=== PATIENT | female | born 1935 | race Native Hawaiian/Other Pacific Islander ===

== ENCOUNTER 2018-01-18 06:13 | Day surgery (SDC) | payer MEDICARE, MEDICAID ==
[2018-01-18] MEDS ORDERED: ONDANSETRON 4 MG/2 ML VIAL IV ONE (06:14)
[2018-01-18] MEDS ORDERED: IV LACTATED RINGERS SOLUTION 1,000 ML BAG IV ONE (06:14)
[2018-01-18] MEDS ORDERED: CIPROFLOXACIN 0.3% OPHT DROP 2.5 ML BOTTLE ONE (06:41)
[2018-01-18] MEDS ORDERED: CYCLOPENTOLATE 1% OPHT DROP 2 ML BOTTLE ONE (06:41)
[2018-01-18] MEDS ORDERED: FLURBIPROFEN 0.03% OPHT DROP 2.5 ML BOTTLE ONE (06:41)
[2018-01-18] MEDS ORDERED: PHENYLEPHRINE 2.5% OPHT DROP 2 ML BOTTLE ONE (06:42)
[2018-01-18] MEDS ORDERED: TROPICAMIDE 1% OPHT DROP 3 ML BOTTLE ONE (06:42)
[2018-01-18] MEDS ORDERED: MOXIFLOXACIN HCL 3 ML OPHT DROPS ONE (06:53)
[2018-01-18] MEDS ORDERED: LIDOCAINE-MPF 2% 5 ML VIAL ONE (06:54)
[2018-01-18] MEDS ORDERED: TETRACAINE HCL 0.5% OPHT DROP 2 ML BOTTLE ONE (06:54)
[2018-01-18] MEDS ORDERED: TIMOLOL MALEATE 0.5% OPHT DROP 5 ML BOTTLE ONE (06:54)
[2018-01-18] MEDS ORDERED: BALANCED SALT IRRIG SOLN COMB2 15 ML IRRIG.SOLN ONE (06:54)
[2018-01-18] MEDS ORDERED: NEO/POLYMYX B/DEXAME OPHT OINT 3.5 GM TUBE ONE (06:54)
[2018-01-18] MEDS ORDERED: ACETYLCHOLINE CHLORIDE 1% OPHT 1 EA KIT ONE (06:55)
[2018-01-18] MEDS ORDERED: HYALURONIDASE,OVINE 200 UNITS/ML VIAL ONE (06:55)
[2018-01-18] MEDS ORDERED: BUPIVACAINE PF 0.5% 30 ML VIAL ONE (06:55)
[2018-01-18] MEDS ORDERED: HYALURONATE SODIUM 12.8 MG/0.8 ML DISP.SYRIN ONE (06:56)
[2018-01-18] MEDS ORDERED: HYALURONATE SODIUM 8.5 MG/0.85 ML DISP.SYRIN ONE (06:56)
[2018-01-18] MEDS ORDERED: BALANCED SALT IRRIG SOLN COMB1 500 ML, EPINEPHRINE-PF 1:1000 0.5 MG IO ONE ×2 (07:00)
[2018-01-18] MEDS ORDERED: FENTANYL CITRATE 100 MCG/2 ML AMPUL ONE (09:06)
[2018-01-18] MEDS ORDERED: BALANCED SALT IRRIG SOLN COMB1 500 ML ONE (09:48)
== END 2018-01-18 10:35 | disposition home or self-care (01) ==
LOC: DS 06:13
PROVIDERS: ATTEND Ophthalmology
DX: H25.11 Age-related nuclear cataract, right eye (principal); I12.9 Hypertensive chronic kidney disease with stage 1 through stage 4 chronic kidney disease, or unspecified chronic kidney disease; N18.3 Chronic kidney disease, stage 3 (moderate); M19.90 Unspecified osteoarthritis, unspecified site; R73.9 Hyperglycemia, unspecified; M35.3 Polymyalgia rheumatica; E78.5 Hyperlipidemia, unspecified; Z79.899 Other long term (current) drug therapy; D64.9 Anemia, unspecified; R00.1 Bradycardia, unspecified
CPT/HCPCS: 66984; 71045; A4663; J0171; J2405; J3010; J3471; J3490 ×2; J7120 ×2; J7321 ×2; V2632